=== PATIENT | female | born 1970 | race Caucasian/White ===

== ENCOUNTER → 2023-08-03 10:33 | Outpatient (CLI) | payer OTHER, SELFPAY ==
--- NOTE | 2023-08-03 12:30 | DI.MRI.S_ITS ---
BREAST MRI OF BOTH BREASTS: 08/03/2023 CLINICAL: Family History of Malignant Neoplasm. TECHNIQUE: The patient was placed prone in a dedicated breast imaging coil. Precontrast axial STIR and 3D FLASH without fat saturation sequences were obtained. Both before and after bolus injection of contrast, sequential 1-minute axial 3D FLASH with fat saturation sequences for 3 time points, with subtraction images and maximum intensity projections (MIP's) generated. Delayed sagittal FLASH images with fat saturation were also obtained. Computer-aided detection, including computer algorithm analysis of MRI image data for lesion detection and characterization, pharmacokinetic analysis, with further physician review for interpretation, was performed. COMPARISON: [facility], [place], MM SCREENING MAMMO BI, 09/15/2022, 11:00. Image quality: Excellent. There is mild-moderate background parenchymal enhancement. There is scattered fibroglandular tissue in the bilateral breast. Right breast: No suspicious mass, non-mass enhancement, or architectural distortion. No skin or nipple abnormalities. No axillary or internal mammary chain adenopathy. Left breast: No suspicious mass, non-mass enhancement, or architectural distortion. No skin or nipple abnormalities. No axillary or internal mammary chain adenopathy. Miscellaneous: Visualized portions of the upper abdomen and chest appear unremarkable. IMPRESSION: NEGATIVE 1. No MRI evidence for malignancy in the right breast. 2. No MRI evidence for malignancy in the left breast. Recommend routine annual screening mammography and consideration for continued annual adjunct screening breast MRI. COMMENT: The imaging literature indicates that a negative contrast breast MRI examination has a high sensitivity and a moderate specificity for detecting and excluding invasive carcinomas to a detection threshold of 3-5 mm; nonetheless, appropriate clinical and mammographic follow-up are recommended. MRI is not sensitive for detecting DCIS (ductal carcinoma in situ) and may not detect large invasive neoplasms that show only minimal enhancement such as mucinous carcinoma. If there are suspicious calcifications or clinically worrisome palpable masses, then biopsy should still be considered. Invasive neoplasms can be hidden by co-existent and benign enhancement caused by mastitis, hormone therapy effects, radiation therapy, , and recent biopsy or surgery. False positive examinations can occur in a number of circumstances, including breasts that have recently been subject to invasive procedures and those that contain atypical ductal hyperplasia, hormonally stimulated glandular tissue, fat necrosis, or radial scars. This exam was interpreted at Station ID: [id number]. Electronically Signed By: Jelani Ramos M.D. aty/:08/03/2023 21:22:50 ACR BI-RADS Category 1: Negative 3341F
== END ==
PROVIDERS: Referring Provider Nurse Practitioner; Visit Provider Nurse Practitioner
DX: R92.8 Other abnormal and inconclusive findings on diagnostic imaging of breast; Z80.3 Family history of malignant neoplasm of breast
CPT/HCPCS: 77049; A9579